=== PATIENT | female | born 1970 | race Caucasian/White ===

== ENCOUNTER → 2017-05-29 16:36 | Outpatient (CLI) | payer MEDICAID, SELFPAY ==
[2017-05-29 17:22] LABS: Absolute Lymphocyte Count 2.14 X10^3/ul (0.83-4.51); Absolute Neutrophil Count 3.3 X10^3/uL (2.0-7.7); Basophil# 0.11 X10^3/uL; Basophil% 1.8 % (0-1); Eosinophil# 0.11 X10^3/uL; Eosinophils% 1.8 % (0-5); Hematocrit 38.8 % (37-47); Hemoglobin 12.8 g/dl (12.0-15.0); Lymphocyte # 2.14 X10^3/ul (4.0); Mean Corpuscular Hgb 26.6 pg (27.0-32.0); Mean Corpuscular Volume 80.7 fL (81-99); Mean Platelet Vol. 10.4 fl (6.2-12.0); Monocyte% 8.2 % (0-10); Neutrophil # 3.25 X10^3/uL (2.7-7.7); Platelet Count 315 K/mm3 (150-450); RBC Distribution Width CV 16.3 % (11.6-14.6); RBC Distribution Width SD 47.3 fl (35.1-43.9); Red Blood Count 4.81 M/mm3 (4.2-5.4); White Blood Count 6.1 K/mm3 (4.4-11.0)
[2017-05-29 17:23] LABS: POSITIVE COUNT NO; POSITIVE DIFFERENTIAL NO; POSITIVE MORPHOLOGY NO
== END ==
PROVIDERS: Family Provider Internal Medicine; PCP Internal Medicine; Visit Provider Obstetrics & Gynecology
DX: N93.9 Abnormal uterine and vaginal bleeding, unspecified (principal)
CPT/HCPCS: 36415; 85025

== ENCOUNTER → 2017-05-31 14:02 | Outpatient (CLI) | payer MEDICAID, SELFPAY ==
--- NOTE | 2017-05-31 14:03 | US_ITS ---
STUDY: ULTRASOUND PELVIC CLINICAL: Female, 47 years old. Abnormal uterine bleeding. TECHNIQUE: Transabdominal and Transvaginal COMPARISON: None. FINDINGS: The uterus is anteverted and is in a midline position. The uterus measures 8.6 x 3.8 x 5.4 cm. Normal uterine cervix. The endometrium measures 19.9 mm in thickness, and is heterogeneous (striated). There is no demonstrated endometrial mass. There is no demonstrated myometrial mass. I.U.D. - The patient does not have an I.U.D. The right ovary is visualized. The right ovary measures 3.3 x 1.8 x 1.8 cm. There is no right ovarian cyst or ovarian mass. There is no visualized right adnexal mass or complex lesion. There is normal arterial and normal venous vascularity. The left ovary is visualized. The left ovary measures 2.3 x 1.3 x 1.6 cm. There is no left ovarian cyst or ovarian mass. There is no visualized left adnexal mass or complex lesion. There is normal arterial and normal venous vascularity. There is no fluid in the cul-de-sac. Urinary bladder has a normal appearance. IMPRESSION: 1. Thickened endometrium. Differential considerations include etiologies for endometrial hyperplasia versus neoplasia. 2. Normal sonographic appearance of both ovaries. Electronically Signed: Hilda Malone MD at 15:19 EST , Service support , STUDY: ULTRASOUND OF THE FEMALE PELVIS - COMPLETE CLINICAL: Female, 47 years old. Abnormal uterine bleeding. TECHNIQUE: Transabdominal and Transvaginal COMPARISON: None. FINDINGS: The uterus is anteverted and is in a midline position. The uterus measures 8.6 x 3.8 x 5.4 cm. Normal uterine cervix. The endometrium measures 19.9 mm in thickness, and is heterogeneous (striated). There is no demonstrated endometrial mass. There is no demonstrated myometrial mass. I.U.D. - The patient does not have an I.U.D. The right ovary is visualized. The right ovary measures 3.3 x 1.8 x 1.8 cm. There is no right ovarian cyst or ovarian mass. There is no visualized right adnexal mass or complex lesion. There is normal arterial and normal venous vascularity. The left ovary is visualized. The left ovary measures 2.3 x 1.3 x 1.6 cm. There is no left ovarian cyst or ovarian mass. There is no visualized left adnexal mass or complex lesion. There is normal arterial and normal venous vascularity. There is no fluid in the cul-de-sac. Urinary bladder has a normal appearance. US/Transvaginal Non- IMPRESSION: 1. Thickened endometrium. Differential considerations include etiologies for endometrial hyperplasia versus neoplasia. 2. Normal sonographic appearance of both ovaries. Electronically Signed: Hilda Malone MD at 15:20 EST , Service support ,
--- NOTE | 2017-05-31 14:03 | US_ITS ---
STUDY: ULTRASOUND PELVIC CLINICAL: Female, 47 years old. Abnormal uterine bleeding. TECHNIQUE: Transabdominal and Transvaginal COMPARISON: None. FINDINGS: The uterus is anteverted and is in a midline position. The uterus measures 8.6 x 3.8 x 5.4 cm. Normal uterine cervix. The endometrium measures 19.9 mm in thickness, and is heterogeneous (striated). There is no demonstrated endometrial mass. There is no demonstrated myometrial mass. I.U.D. - The patient does not have an I.U.D. The right ovary is visualized. The right ovary measures 3.3 x 1.8 x 1.8 cm. There is no right ovarian cyst or ovarian mass. There is no visualized right adnexal mass or complex lesion. There is normal arterial and normal venous vascularity. The left ovary is visualized. The left ovary measures 2.3 x 1.3 x 1.6 cm. There is no left ovarian cyst or ovarian mass. There is no visualized left adnexal mass or complex lesion. There is normal arterial and normal venous vascularity. There is no fluid in the cul-de-sac. Urinary bladder has a normal appearance. IMPRESSION: 1. Thickened endometrium. Differential considerations include etiologies for endometrial hyperplasia versus neoplasia. 2. Normal sonographic appearance of both ovaries. Electronically Signed: Hilda Malone MD at 15:19 EST , Service support , STUDY: ULTRASOUND OF THE FEMALE PELVIS - COMPLETE CLINICAL: Female, 47 years old. Abnormal uterine bleeding. TECHNIQUE: Transabdominal and Transvaginal COMPARISON: None. FINDINGS: The uterus is anteverted and is in a midline position. The uterus measures 8.6 x 3.8 x 5.4 cm. Normal uterine cervix. The endometrium measures 19.9 mm in thickness, and is heterogeneous (striated). There is no demonstrated endometrial mass. There is no demonstrated myometrial mass. I.U.D. - The patient does not have an I.U.D. The right ovary is visualized. The right ovary measures 3.3 x 1.8 x 1.8 cm. There is no right ovarian cyst or ovarian mass. There is no visualized right adnexal mass or complex lesion. There is normal arterial and normal venous vascularity. The left ovary is visualized. The left ovary measures 2.3 x 1.3 x 1.6 cm. There is no left ovarian cyst or ovarian mass. There is no visualized left adnexal mass or complex lesion. There is normal arterial and normal venous vascularity. There is no fluid in the cul-de-sac. Urinary bladder has a normal appearance. US/Pelvic (Non ) IMPRESSION: 1. Thickened endometrium. Differential considerations include etiologies for endometrial hyperplasia versus neoplasia. 2. Normal sonographic appearance of both ovaries. Electronically Signed: Hilda Malone MD at 15:20 EST , Service support ,
== END ==
PROVIDERS: Family Provider Internal Medicine; PCP Internal Medicine; Visit Provider Obstetrics & Gynecology
DX: N93.9 Abnormal uterine and vaginal bleeding, unspecified (principal)
CPT/HCPCS: 76830; 76856; 93976

== ENCOUNTER → 2017-06-04 16:20 | Outpatient (CLI) | payer MEDICAID, SELFPAY ==
--- NOTE | 2017-06-04 | EMB_PTH ---
PATIENT: JENNY ROWLAND LOC: [facility] U#:[id number] AGE/SX: 55/F ROOM: RE06/04/[address]: Dr. Suzan Kincaid MD : 1970 BED: DIS: SPEC #: [id number] RECD: 06/04/17 16:19 STATUS: KETURAH ÁNGELA #: [id number] NESS: 06/04/17 00:[address]: Suzan Kincaid DEPT: SURGICAL PATHOLOGY RECD BY: Deacon Hawk ENTERED: 06/05/17 06:49 SP TYPE: ENDOM BX/C NOÉ DR: Dr. 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 RENETTA:juan 06/06/17 MICROSCOPIC DESCRIPTION Slides are reviewed. GROSS DESCRIPTION Received is one container labeled with the patient's name and not further designated. The specimen consists of multiple irregular and elongated fragments of pink-mcqueen soft tissue that in aggregate measure 3 x 1.5 x 0.1 cm. The specimen is totally submitted in one cassette. / AM:juan 06/05/17 TC:5 CPT: 03206
== END ==
PROVIDERS: Family Provider Internal Medicine; PCP Internal Medicine; Visit Provider Obstetrics & Gynecology
DX: N93.9 Abnormal uterine and vaginal bleeding, unspecified (principal)
CPT/HCPCS: 88305

== ENCOUNTER 2017-06-10 10:06 | Day surgery (SDC) | payer MEDICAID, SELFPAY ==
--- NOTE | 2017-06-10 08:20 | PCM.HPOB.BLA ---
- Problem List (1) Abnormal uterine bleeding unrelated to menstrual cycle Status: Acute Comment: short course aygestin, ordered cbc and us, visit in office History and Physical Date of Admission: 06/10/17 OFFICE VISIT Date of Service: 06/04/17 MR#:[id number] Name: JENNY ROWLANDRep #:[id number] : 1970 Provider:Suzan Kincaid MD Age/Sex: 47/F [place] [place]Signed Intake Vital Signs 06/04/17 Height 5 ft 4 in 06/04/17 Weight: 239 lb 8 oz 06/04/17 Body Mass Index (BMI) 41.1 06/04/17 Blood Pressure 118/86 Intake Visit Reasons: irregular vaginal bleeding discuss ablation Nursing Admin Required: No Accompanied by: None Is patient in pain?: No Allergies cephalexin monohydrate [From Keflex] Allergy (Verified 06/06/17 12:04) Hives influenza virus vaccine, specific [influenza virus vacc,specific] Allergy (Verified 06/06/17 12:04) Hives levofloxacin [From Levaquin] Allergy (Verified 06/06/17 12:04) HIVES - JUST IV FORM caffeine Adverse Reaction (Verified 06/06/17 12:04) Shortness of breath tetanus toxoid, adsorbed Adverse Reaction (Verified 06/06/17 12:04) FEVER,NAUSEA,DIARRHEA,REDNESS AT INJECTION SITE Medications Clonazepam [Klonopin] 1 mg PO DAILY 06/14/15 [History Confirmed 06/06/17] Clonazepam [Klonopin] 2 mg PO QHS 09/19/16 [History Confirmed 06/06/17] HydrOXYzine KEANU [Vistaril] 50 mg PO DAILY 09/19/16 [History Confirmed 06/06/17] Hydroxyzine Pamoate 100 mg PO QHS 09/19/16 [History Confirmed 06/06/17] Hydrochlorothiazide [Hctz] 12.5 mg PO DAILY 01/03/17 [History Confirmed 06/06/17] Tizanidine HCl [Zanaflex] 4 mg PO QHS PRN 01/03/17 [History Confirmed 06/06/17] Zolpidem Tartrate [Ambien] 10 mg PO QHS PRN 01/03/17 [History Confirmed 06/06/17] albuterol sulfate HFA 90 mcg/actuation aerosol inhaler 2 puff INHALATION Q6H 03/20/17 [History Confirmed 06/06/17] naproxen 500 mg tablet 500 mg PO Q12H 03/20/17 [History Confirmed 06/06/17] gabapentin 600 mg tablet 600 mg PO TID tab 06/04/17 [History Confirmed 06/06/17] levothyroxine 25 mcg tablet 25 mcg PO DAILY 30 Days #30 06/04/17 [History Confirmed 06/06/17] lorazepam 0.5 mg tablet 0.5 mg PO Q4H PRN 5 Days #30 tab 06/04/17 [History Confirmed 06/06/17] oxycodone-acetaminophen 5 mg-325 mg tablet 1 tab PO ONCE PRN 06/04/17 [History Confirmed 06/06/17] Methocarbamol 750 mg PO PRN PRN 06/06/17 [History Confirmed 06/06/17] Venlafaxine HCl [Venlafaxine HCl ER] 225 mg PO DAILY 06/06/17 [History Confirmed 06/06/17] Is last menstrual period known: Yes Last Menstral Period: 05/16/17 PFSH Medical History Abnormal uterine bleeding unrelated to menstrual cycle (Acute) Abnormal CT scan, chest (Chronic) Arthritis (Chronic) Atypical chest pain (Chronic) Encounter for gynecological examination with abnormal finding (Chronic) Headache (Chronic) Pulmonary hypertension (Chronic) Abnormal uterine bleeding (Resolved) Personal history of other venous thrombosis and embolism (Resolved) Pulmonary embolism (Resolved) Screening for HPV (human papillomavirus) (Resolved) Screening for cervical cancer (Resolved) Surgical History H/O bilateral breast reduction surgery (Resolved) H/O carpal tunnel repair (Resolved) H/O dilation and curettage (Resolved) History of tonsillectomy (Resolved) Family History Mother Arthritis Father CAD (coronary artery disease) [place] Kidney disease Heart disease Brother Diabetes Heart disease Renal failure Social History Smoking Status: Never smoker second hand exposure: No alcohol intake: never substance use type: does not use caffeine: Yes (1/day) what type of physical activity do you participate in: none HPI irregular vaginal bleeding discuss ablation: Details: JENNY ROWLAND is a 47 year old who presents for abnormal uterine bleeding. she has been having bleeding on and off for a few months, with the latest episode lasting over two weeks and vey heavy, she has a history of pe and was given a short course of aygestin due to the severe bleeding. she denies any dizziness or headache. Female Reproductive History Last Menstral Period: 05/16/17 Cycle Length: 21-35 Pregancy History 1 Elective abortions Hx Para 1 Spontaneous abortions Hx # Term Pregnancies Ectopic pregnancies Hx # Pregnancies Multiple births # of living children Past Pregnancies Del. Date Name GA/Weeks Outcome Route Bth Weight Infant Gen Labor Lgth Anesthesia Del Locatn Provider FOB 06/14/99 ALBERTO 06/14/99 ALBERTO ROS Const Constitutional: Reports system reviewed and no additional complaints, except as docu GI GI: Denies abdominal pain, nausea, vomiting or cramping : Denies urinary frequency, vaginal dryness, vaginal discharge, urinary urgency, urinary incontinence, vaginal odor or pelvic pain Exam Const General: cooperative, healthy appearing, comfortable, no acute distress, well developed Nutritional Appearance: average body habitus Orientation: alert HENMT Head: normal to inspection, normocephalic Neck Neck: normal visual inspection, trachea midline Thyroid: thyroid normal Resp Effort & Inspection: normal respiratory effort GI Inspection: normal to inspection, non-distended Palpation: soft, no hepatosplenomegaly General: bladder normal to palpation External Female Exam: normal external appearance, normal appearance of the urethra Urethra: normal appearance of the urethra, normal palpation, no discharge Speculum Exam - Vagina: normal appearance of the vagina, normal vaginal discharge Speculum Exam - Cervix: normal appearance of the cervix, nontender Bimanual Exam- Vagina & Uterus: bladder normal to palpation, No cervical tenderness, normal bimanual exam, uterine size normal, uterine shape normal, uterine mobility normal, uterine consistency normal, normal cervical palpation, uterus non-tender Bimanual Exam- Adnexa, other: normal adnexae, adnexae mobile, no adnexal masses, pelvic support normal Pelvic Support: normal Skin General: no rashes or lesions noted Office Procedures Endometrial Biopsy Endometrial Biopsy Test: Yes declined Consent Signed: Yes Time out checklist: patient, procedure, site marked/identified, positioning of patient, supplies available, allergies confirmed, team agrees on procedure Time out time: 11:30 tenaculum used: No dilator used: No Details: Cervix prepped with betadine and pipelle inserted into uterus without complication. Specimen obtained and sent to lab for analysis. All instruments removed from vagina without complications. Excellent hemostasis noted. Assessment & Plan Problems 1. Abnormal uterine bleeding unrelated to menstrual cycle N93.9 short course aygestin, ordered cbc and us, visit in office Plan discussed options recommend endometrial biopsy today and if normal recommend endometrial ablation MONA and laparoscopic bilateral salpingectomy for sterilization. patient not a candidate for usp hormones and recommend surgery as soon as possible to prevent further bleeding episodes. update- normal EMB, proceed with d and c hysteroscopy. i have seen the patient and there are no other clinically relevant updates. Suzan Kincaid
--- NOTE | 2017-06-10 10:17 | EKG12_ITS ---
Test Reason : PRE-OP Blood Pressure : / mmHG Vent. Rate : 076 BPM Atrial Rate : 076 BPM P-R Int : 132 ms QRS Dur : 090 ms QT Int : 376 ms P-R-T Axes : 041 -13 022 degrees QTc Int : 423 ms Normal sinus rhythm Normal ECG When compared with ECG of 03-JAN-2017 15:54, Fusion complexes are no longer Present Confirmed by SULTANA MCCALL, LADAN ([id number]), associate entertainment editor HUONG GAMING ([id number]) on 06/12/2017 2:36:13 PM Referred By: Suzan Kincaid Confirmed By:LADAN WEINBERG MD
[2017-06-10 10:40] LABS: Internal QC Validated? YES +Cl - CLEAR BKGD; Pregnancy, Urine Negative Negative
[2017-06-10 10:42] VITALS: BP 120/76; PULSE 80; RESP 20; TEMP 37.4; O2SAT 100; BMI 41.0
[2017-06-10 11:05] LABS: Hematocrit 36.1 % (37-47); Hemoglobin 11.7 g/dl (12.0-15.0); Mean Corp Hgb Conc 32.4 g/gl (32-36); Mean Corpuscular Hgb 26.2 pg (27.0-32.0); Mean Corpuscular Volume 80.8 fL (81-99); Mean Platelet Vol. 8.9 fl (6.2-12.0); Platelet Count 308 K/mm3 (150-450); RBC Distribution Width CV 16.6 % (11.6-14.6); RBC Distribution Width SD 49.4 fl (35.1-43.9); Red Blood Count 4.47 M/mm3 (4.2-5.4); White Blood Count 7.5 K/mm3 (4.4-11.0)
[2017-06-10 11:06] LABS: Scan Indicated on CBC? Y/N NO
--- NOTE | 2017-06-10 11:45 | FALS_PTH ---
PATIENT: JENNY ROWLAND [place] [facility] [place][id number] AGE/SX: 47/F ROOM: RE06/10/[address]: Dr. Suzan Kincaid MD : 1970 BED: DIS: 06/10/2017 SPEC #: [id number] RECD: 06/11/17 08:39 STATUS: KETURAH ÁNGELA #: [id number] NESS: 06/10/17 11:[address]: Suzan Kincaid DEPT: SURGICAL PATHOLOGY RECD BY: Drew Tyler ENTERED: 06/11/17 12:13 SP TYPE: FALL TUBES OTHR DR: Dr. Nury Toscano MD Tissues: A - Fallopian tube B - Endometrium, NOS Procedures: Surgery Specimen Level II Surgery Specimen Level IV HEADER OPERATION: Hysteroscopy, D & C, Almita PRE-OP DIAGNOSIS: Abnormal uterine bleeding; sterilization request TISSUE SUBMITTED: A ? Bilateral fallopian tubes, B ? Endometrial curettings MICROSCOPIC DIAGNOSIS A. Bilateral fallopian tubes, salpingectomy: Bilateral fallopian tubes including fimbrial ends, no pathologic diagnosis. B. Endometrial curettings: Predominantly secretory endometrium with focal area of disordered proliferative endometrium. RENETTA:juan 06/12/17 COMMENT Please make reference to previous specimen ([id number]) endometrial biopsy with diagnosis of dyssynchronous endometrium consisting of disordered proliferative endometrium with focal secretory changes. MICROSCOPIC DESCRIPTION Slides are reviewed. GROSS DESCRIPTION A - Received is one container labeled with the patient's name and designated bilateral fallopian tubes. The specimen consists of two fallopian tubes including fimbrial ends. The fallopian tubes are not identified as right or left. One of the fallopian tubes measure 3.5 cm in length and 0.5 cm in diameter. The other fallopian tube measures 5 cm in length and 0.5 cm in diameter. Sections reveal unremarkable cut surfaces. Flight Test Engineer sections are submitted in two cassettes with each cassette containing one fallopian tube. B - Received in fixative is one container labeled with the patient's name and designated endometrial curettings. The specimen consists of multiple irregular fragments of mcqueen-pink soft tissue that in aggregate measure 5 x 3 x 0.3 cm. The entire specimen is submitted in two cassettes. / Michael 06/11/17 TC:5 CPT: 65114, 72196 x2
--- NOTE | 2017-06-10 11:54 | PCM.DC.TUB ---
Discharge Diet: No Restrictions - Increase fluid intake for the next 48 hours. Discharge Activity: Return to Normal Activity, May Drive - when you are no longer taking narcotic pain medications., May Shower, May Take a Tub Bath - in 7 days Additional Activity Instructions:: Ambulate often the next week after surgery. Nothing in the vagina for 5 days. Call your doctor if your incision/area has: Continuous Slow Oozing, Sudden Increased Bleeding, Increased Pain/ Swelling, Increased Redness, Foul Smelling Discharge Call your doctor if you observe: Fever of 101 or Higher Allergies/Adverse Reactions: Allergies cephalexin monohydrate [From Keflex] Allergy (Verified 06/06/17 12:04) Hives IV FORM ONLY PER PATIENT IS ABLE TO TAKE PO KEFLEX influenza virus vaccine, specific [influenza virus vacc,specific] Allergy (Verified 06/06/17 12:04) Hives levofloxacin [From Levaquin] Allergy (Verified 06/06/17 12:04) HIVES - JUST IV FORM caffeine Adverse Reaction (Verified 06/06/17 12:04) Shortness of breath tetanus toxoid, adsorbed Adverse Reaction (Verified 06/06/17 12:04) FEVER,NAUSEA,DIARRHEA,REDNESS AT INJECTION SITE Medications to take at Discharge Clonazepam [Klonopin] 1 mg PO DAILY 06/14/15 Clonazepam [Klonopin] 2 mg PO QHS 09/19/16 HydrOXYzine KEANU [Vistaril] 50 mg PO DAILY 09/19/16 Hydroxyzine Pamoate 100 mg PO QHS 09/19/16 Hydrochlorothiazide [Hctz] 12.5 mg PO DAILY 01/03/17 Tizanidine HCl [Zanaflex] 4 mg PO QHS PRN 01/03/17 Zolpidem Tartrate [Ambien] 10 mg PO QHS PRN 01/03/17 albuterol sulfate HFA 90 mcg/actuation aerosol inhaler 2 puff INHALATION Q6H 03/20/17 naproxen 500 mg tablet 500 mg PO Q12H 03/20/17 gabapentin 600 mg tablet 600 mg PO TID tab 06/04/17 levothyroxine 25 mcg tablet 25 mcg PO DAILY 30 Days #30 06/04/17 lorazepam 0.5 mg tablet 0.5 mg PO Q4H PRN 5 Days #30 tab 06/04/17 oxycodone-acetaminophen 5 mg-325 mg tablet 1 tab PO ONCE PRN 06/04/17 Methocarbamol 750 mg PO PRN PRN 06/06/17 Venlafaxine HCl [Venlafaxine HCl ER] 225 mg PO DAILY 06/06/17 Ibuprofen [Motrin] 600 mg PO Q6H PRN PRN #30 tab 06/10/17 Naproxen [Naprosyn] 250 - 500 mg PO Q8H PRN PRN #30 tab 06/10/17 Oxycodone HCl/Acetaminophen [Percocet 5-325] 1 - 2 tablet PO Q4H PRN PRN 7 Days #15 tablet 06/10/17 The following prescriptions were given: Oxycodone HCl/Acetaminophen [Percocet 5-325] 1 - 2 tablet PO Q4H PRN PRN 7 Days #15 tablet PRN Reason: Pain Ibuprofen [Motrin] 600 mg PO Q6H PRN PRN #30 tab PRN Reason: Pain Naproxen [Naprosyn] 250 - 500 mg PO Q8H PRN PRN #30 tab PRN Reason: MILD PAIN Primary Care Physician: Nury Toscano MD [Primary Care Provider] - Please Follow Up With: Suzan Kincaid MD - [phone]
[2017-06-10] MEDS: Bupivacaine 0.25% 30 ML Vial (12:02)
[2017-06-10] MEDS: Silver Nitrate (BKC) 1 EACH (12:28)
[2017-06-10 12:45] VITALS: BP 115/65; BP 120/76; PULSE 97; RESP 16; TEMP 36.3; O2SAT 97
[2017-06-10 13:00] VITALS: BP 120/76; BP 127/89; PULSE 83; RESP 16; O2SAT 100
[2017-06-10 13:15] VITALS: BP 113/92; BP 120/76; PULSE 78; RESP 16; TEMP 36.1; O2SAT 100
[2017-06-10] MEDS: Ketorolac 30 MG/ML Syringe IV (13:40)
[2017-06-10 14:05] VITALS: BP 120/76
--- NOTE | 2017-06-12 08:17 | OP.PCM_ITS ---
Problem List (1) Abnormal uterine bleeding unrelated to menstrual cycle Status: Acute Comment: short course aygestin, ordered cbc and us, visit in office (2) Sterilization Status: Acute Report of Operation Date of Procedure: 06/10/17 Pre-Operative Diagnosis: aub sterilization Post-Operative Diagnosis: same Surgery/Procedure Performed:: D&C hysteroscopy Almita ablation and laparoscopic bilateral salpingectomy Description of Surgical Findings:: Thickened endometrial lining client support manager: Kathrin Cooper Type of Anesthesia:: General Specimen's removed: Lateral fallopian tubes and endometrial curettings Drains: None Estimated Blood Loss (mL): 50 Fluids Replaced: crystalloid Description of Procedure: Patient was taken in the operating room and was placed under general anesthesia was prepped and draped in normal sterile fashion in the dorsal lithotomy position. Bladder was drained of clear urine and SCDs were on preoperatively. Uterus was sounded and a uterine manipulator was placed after dilating. Attention was then paid to the abdominal portion of the procedure and the umbilicus was elevated with towel clamps and injected with Marcaine and after a 5 mm incision was made and the Veress needle was entered into the abdomen confirmed to be intra-abdominal with a low opening pressure of less than 5 mmHg. Abdomen was insufflated with CO2 gas and a 5 mm optical trocar was placed under direct visualization. A left lower quadrant 5 mm port and a 5 mm port suprapubically replaced under direct visualization. Uterus was well visualized and bilateral fallopian tubes identified and bilateral tubes were elevated and transecting across the mesosalpinx and the attachment to the uterine corneal S bilaterally the tubes were removed without complication. Excellent hemostasis was noted. Fallopian tubes were removed through the lower port sites without complication. Liver and upper abdomen were visualized notably within normal limits and no other gross after maladies were seen in the abdomen. All instruments removed from the abdomen after gas was desufflated. Port sites were closed with 3-0 Monocryl Steri's and op sites were applied. A weighted speculum was placed in the vagina and the anterior lip of the cervix was grasped with a single-tooth tenaculum. A paracervical block was placed with 1% lidocaine. Cervix was progressively dilated to allow passage of a 5 mm hysteroscope. The lining was fully visualized and noted to have thickened appearance. Uterine sounded to 9 cm. Curettage was performed and significant amount of tissue was removed, sent to pathology. The Almita device was opened and the cavity length was found to be 5 cm. Device was inserted into the uterus and balloon inflated and device deployed. Integrity of the cavity was confirmed and a 2 minute treatment cycle was completed without complication. All instruments were removed from the vagina and excellent hemostasis was noted. Patient was awoken and taken to recovery in stable condition. Grafts/Implants Used: none - Complications none
== END 2017-06-10 14:12 | disposition home or self-care (01) ==
LOC: SDC 10:07 → AC 10:09
PROVIDERS: Anesthesiology; Family Provider Internal Medicine; PCP Internal Medicine; Visit Provider Obstetrics & Gynecology
PROC: 0U5B8ZZ Destruction of Endometrium, Via Natural or Artificial Opening Endoscopic (ICD-10-PCS; CPT 58558; principal; 2017-06-10 11:30)
PROC: (CPT 58661; 2017-06-10 11:30)
DX: N85.8 Other specified noninflammatory disorders of uterus (principal); N93.9 Abnormal uterine and vaginal bleeding, unspecified; Z30.2 Encounter for sterilization; R93.8 Abnormal findings on diagnostic imaging of other specified body structures; M19.90 Unspecified osteoarthritis, unspecified site; I27.20 Pulmonary hypertension, unspecified; I08.1 Rheumatic disorders of both mitral and tricuspid valves; F41.9 Anxiety disorder, unspecified; Z86.711 Personal history of pulmonary embolism; Z79.899 Other long term (current) drug therapy
CPT/HCPCS: 58563; 58661; 81025; 85027; 86850; 86900; 88302; 88305; 93005; J7120; J2405

== ENCOUNTER 2018-04-05 10:42 | Emergency (ER) | payer MEDICAID, SELFPAY ==
[2018-04-05] VITALS (7 sets, daily range): BP systolic 114–147; BP diastolic 51–86; PULSE 74–88; RESP 14–18; TEMP 36.4; O2SAT 89–97; BMI 43.4
--- NOTE | 2018-04-05 11:01 | CT_ITS ---
STUDY: CTA CHEST REASON FOR EXAM: Female, 48 years old. Shortness of breath. Recent pneumonia. Exclude PE. RADIATION DOSAGE (If Supplied By Facility): CTDIvol = ( 18.91 ) mGy, DLP = ( 946.93 ) mGycm TECHNIQUE: The examination was performed with the intravenous administration of 100 ml of Isovue 370 contrast material. Post-processing of the angiographic images was performed, with multiplanar reformation and 3D reconstruction. Individualized dose optimization techniques were used for this CT. COMPARISON: 09/19/2016 FINDINGS: Normal enhancement of the main pulmonary artery and right and left pulmonary arteries. Normal enhancement of the bilateral peripheral pulmonary arteries. There is no demonstrated pulmonary embolism. Normal thoracic aorta and visualized great vessels. There is no demonstrated aortic dissection. Normal heart and pericardium. Normal mediastinum. Normal hilar regions. Normal visualized trachea and bronchi. The lungs are well expanded. Normal pulmonary parenchyma. Normal pleura. Normal chest wall structures. Normal osseous structures. Normal visualized upper abdomen. CT/CTA Chest W/WO Contrast IMPRESSION: Normal CTA chest examination, without a demonstrated pulmonary embolism or arterial dissection. Electronically Signed: Josemanuel Nicole DO at 12:11 EST Tel , Service support ,
[2018-04-05] MEDS: Ipratropium/Albuterol Sulfate 3 ML AMPUL.NEB INHALATION (11:16)
[2018-04-05 11:28] LABS: Absolute Lymphocyte Count 2.07 X10^3/ul (0.83-4.51); Absolute Neutrophil Count 2.4 X10^3/uL (2.0-7.7); Basophil# 0.05 X10^3/uL; Basophil% 0.9 % (0-1); Eosinophil# 0.13 X10^3/uL; Eosinophils% 2.4 % (0-5); Hemoglobin 11.5 g/dl (12.0-15.0); Lymphocyte # 2.07 X10^3/ul (4.0); Lymphocyte % 38.9 % (19-41); Mean Corp Hgb Conc 31.9 g/gl (32-36); Mean Corpuscular Hgb 26.3 pg (27.0-32.0); Mean Corpuscular Volume 82.2 fL (81-99); Mean Platelet Vol. 9.2 fl (6.2-12.0); Monocyte# 0.65 X10^3/uL; Monocyte% 12.2 % (0-10); Neutrophil # 2.42 X10^3/uL (2.7-7.7); Neutrophil % 45.6 % (47-70); POSITIVE COUNT NO; POSITIVE DIFFERENTIAL NO; POSITIVE MORPHOLOGY NO; Platelet Count 277 K/mm3 (150-450); RBC Distribution Width CV 16.2 % (11.6-14.6); RBC Distribution Width SD 48.8 fl (35.1-43.9); Red Blood Count 4.38 M/mm3 (4.2-5.4); White Blood Count 5.3 K/mm3 (4.4-11.0)
[2018-04-05 11:43] LABS: Anion Gap 10 (5-15); BUN 19 mg/dL (7-18); BUN/Creat Ratio 20.8 RATIO (10-20); Calcium,Total 8.7 mg/dL (8.5-10.1); Chloride 107 mmol/L (98-107); Creatinine, Serum 0.92 mg/dL (0.55-1.02); EST Glomerular Filtration Rate 69 mL/min (>60); Est Glom Filt Rate - Afr Amer 84 mL/min (>60); Estimated Creatinine Clearance 63.17 ml/min; Glucose 84 mg/dL (74-106); Sodium Level 140 mmol/L (136-145)
--- NOTE | 2018-04-05 12:30 | ED.VISSUMM ---
- ER Visit Summary Date of Service: 04/05/18 Chief Complaint: [Shortness of breath] History of Present Illness: The patient is a 48 F [presents the emergency department complaint of cough and shortness of breath that she has had for almost a month. Patient states that she was diagnosed with pneumonia in February and was treated with antibiotics.] Patient states that initially she felt a little bit better but then started having increasing cough that is essentially nonproductive. Patient had some heaviness in her chest. She is been feeling fatigued. She has had some swelling in her legs. Patient does have a history of pulmonary emboli in the past and had been on anticoagulation for 6 months and then was taken off. Patient denies recent travel or surgery. She does have a history of hypertension, hypothyroidism, anxiety, and migraines. Physical Examination: [HEENT-PERRLA, EOMI. Cranial nerves II through XII grossly intact. TMs clear. Mucous membranes moist. No adenopathy. Cardiovascular-regular rate and rhythm without murmur or ectopy Lungs-good aeration bilaterally. Occasional wheezes noted. No accessory muscle use or retractions. Abdomen-normoactive bowel sounds, soft, nontender, no rebound or rigidity, no peritoneal signs. Extremities-intact ?4, normal range of motion, normal pulses, atraumatic. Trace edema bilateral lower extremities.] Test Results: [EKG obtained arrival shows sinus rhythm with a ventricular rate of 77 bpm with a right bundle branch block that is incomplete. CBC with differential is normal. Chemistries were normal. Troponin was less than 0.015. CTA of the chest was normal.] Emergency Department Course and Treatment: [Patient was given a DuoNeb aerosol which did symptomatically feel improved.] Treatment Plan: [Patient will be started on prednisone and doxycycline. 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 At this point I do not feel her symptoms are cardiac and she states that she did have a stress test a year ago that was unremarkable.] Disposition: [Discharged home in stable condition] Impression: [Dyspnea Asthmatic bronchitis] This note was generated with [employer] software. It may contain incorrect words, spelling, and punctuation that were not noted in review of the chart prior to signing ED Disposition - Plan for ED Patient: Chief Complaint: Shortness of Breath Referrals: Nury Toscano MD [Primary Care Provider] -
--- NOTE | 2018-04-05 12:33 | ED.DCSUM_ITS ---
- ER Visit Summary Date of Service: 04/05/18 Chief Complaint: [Shortness of breath] History of Present Illness: The patient is a 48 F [presents the emergency department complaint of cough and shortness of breath that she has had for almost a month. Patient states that she was diagnosed with pneumonia in [place] and was treated with antibiotics.] Patient states that initially she felt a little bit better but then started having increasing cough that is essentially nonproductive. Patient had some heaviness in her chest. She is been feeling fatigued. She has had some swelling in her legs. Patient does have a history of pulmonary emboli in the past and had been on anticoagulation for 6 months and then was taken off. Patient denies recent travel or surgery. She does have a history of hypertension, hypothyroidism, anxiety, and migraines. Physical Examination: [HEENT-PERRLA, EOMI. Cranial nerves II through XII grossly intact. TMs clear. Mucous membranes moist. No adenopathy. Cardiovascular-regular rate and rhythm without murmur or ectopy Lungs-good aeration bilaterally. Occasional wheezes noted. No accessory muscle use or retractions. Abdomen-normoactive bowel sounds, soft, nontender, no rebound or rigidity, no peritoneal signs. Extremities-intact ?4, normal range of motion, normal pulses, atraumatic. Trace edema bilateral lower extremities.] Test Results: [EKG obtained arrival shows sinus rhythm with a ventricular rate of 77 bpm with a right bundle branch block that is incomplete. CBC with differential is normal. Chemistries were normal. Troponin was less than 0.015. CTA of the chest was normal.] Emergency Department Course and Treatment: [Patient was given a DuoNeb aerosol which did symptomatically feel improved.] Treatment Plan: [Patient will be started on prednisone and doxycycline. 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 At this point I do not feel her symptoms are cardiac and she states that she did h ave a stress test a year ago that was unremarkable.] Disposition: [Discharged home in stable condition] Impression: [Dyspnea Asthmatic bronchitis] This note was generated with [employer] dictation software. It may contain incorrect words, spelling, and punctuation that were not noted in review of the chart prior to signing ED Disposition - Plan for ED Patient: Chief Complaint: Shortness of Breath Referrals: Nury Toscano MD [Primary Care Provider] -
--- NOTE | 2018-04-05 12:33 | ED.DEP ---
ED Disposition - Plan for ED Patient: Chief Complaint: Shortness of Breath Instructions: ED Bronchitis Asthmatic, ED Dyspnea Shortness of Breath Prescriptions: Doxycycline 100 mg PO BID #20 cap Prednisone [Deltasone] 20 mg PO BID #10 tab Referrals: Nury Toscano MD [Primary Care Provider] - 3-5 Days
[2018-04-05 12:54] LABS: BNP,B-Type NATRIURETIC PEPTIDE 20.4 pg/mL (0-100)
== END 2018-04-05 12:51 | disposition home or self-care (01) ==
PROVIDERS: Emergency Provider Emergency Medicine; Family Provider Internal Medicine; PCP Internal Medicine
DX: J45.909 Unspecified asthma, uncomplicated (principal); I10 Essential (primary) hypertension; E03.9 Hypothyroidism, unspecified; F41.9 Anxiety disorder, unspecified; Z86.711 Personal history of pulmonary embolism; Z87.01 Personal history of pneumonia (recurrent); Z79.899 Other long term (current) drug therapy
CPT/HCPCS: 71275; 80048; 83880; 84484; 85025; 93005; 94640; 99284; Q9967; A4216

== ENCOUNTER 2018-10-08 15:13 | Emergency (ER) | payer MEDICAID, SELFPAY ==
[2018-04-05 10:44] VITALS: BMI 43.4
[2018-10-08 15:14] VITALS: BP 118/83; PULSE 108; RESP 14; TEMP 36.8; O2SAT 96; BMI 44.6
--- NOTE | 2018-10-08 15:35 | ED.VISSUMM ---
- ER Visit Summary Date of Service: 10/08/18 Chief Complaint: Back pain History of Present Illness: The patient is a 48 F who has a history of spinal stenosis. Approximately 2 years ago she had surgery for this. States initially went well but then she bent over an industrial sink and her pain returned. Her previous spinal stenosis Dr. marie 1 year ago. She has an appointment with pain management in a couple weeks through [place]. Today she got in the shower was getting dressed and when she bent over she had immediate pain in her low back that radiates down the right leg. She notes some decreased sensation in the calf the dorsum of her foot. No muscle weakness. She states over the past month she has problems starting her stream. There is been no incontinence. No fevers she states she has a couple hydrocodone left which she tried today which did not help her. She also takes methocarbam. Physical Examination: Afebrile vital signs are stable Gen: Well-nourished well-developed Head: Normocephalic atraumatic Eyes: Perrl EOMI ENT: TMs clear no rhinorrhea moist mucous membranes Neck: Supple no lymphadenopathy no JVD nontender CVS: Regular rate rhythm no murmurs normal S1-S2 Respiratory: No distress clear to auscultation bilaterally chest nontender Abdomen: Soft nontender nondistended normal bowel sounds no masses Back: Tender palpation of the right paraspinal musculature. Extremity: Nontender no edema Skin: Normal color no rash Neuro: alert orientated ?3 CN II-XII intact normal strength reported decreased sensation calf dorsum of right foot Psych: Normal affect normal mood Emergency Department Course and Treatment: Patient received an intramuscular dose of morphine and Toradol. I will write for oxycodone, Valium, and naproxen. Patient should follow-up with her doctors. Impression: 1. Acute on chronic back pain This note was generated with [email or web address] dictation software. It may contain incorrect words, spelling, and punctuation that were not noted in review of the chart prior to signing ED Disposition - Plan for ED Patient: Disposition: Home or Assisted Living Instructions: BACK PAIN (Acute or Chronic) Prescriptions: Naproxen [Naprosyn] 500 mg PO BID #14 tab Prescription Printed Oxycodone [Oxyir] 5 mg PO Q6H PRN PRN 3 Days #12 tab PRN Reason: Pain Prescription Printed Diazepam [Valium] 5 mg PO Q8 PRN 3 Days #9 tab PRN Reason: Muscle Spasm Prescription Printed Referrals: Nury Toscano MD [Primary Care Provider] - 3-5 Days if not improving Additional Instructions: Do not take the hydrocodone and the oxycodone together. Stop the methocarbam if you are taking Valium.
[2018-10-08] MEDS: morphine 10 MG/ML Syringe IM (15:39)
[2018-10-08] MEDS: Ketorolac 60 MG/2 ML Vial IM (15:42)
[2018-10-08 16:12] VITALS: BP 119/91; PULSE 88; RESP 16; O2SAT 93
== END 2018-10-08 16:22 | disposition home or self-care (01) ==
LOC: ED 16:16
PROVIDERS: Emergency Provider Emergency Medicine; Family Provider Internal Medicine; PCP Internal Medicine
DX: M54.5 Low back pain (principal); G89.29 Other chronic pain; M48.00 Spinal stenosis, site unspecified; E66.9 Obesity, unspecified; Z68.41 Body mass index [BMI] 40.0-44.9, adult
CPT/HCPCS: 96372; 99282

== ENCOUNTER → 2018-12-08 15:56 | Outpatient (CLI) | payer MEDICAID, SELFPAY ==
[2018-12-08 17:06] LABS: Amphetamine Urine VISTA NEGATIVE (<1000 ng/mL); Barbiturate Urine VISTA NEGATIVE (< 200 ng/mL); Benzodiazepine Urine VISTA POSITIVE (< 200 ng/mL); Cocaine Urine VISTA NEGATIVE (< 300 ng/mL); Ecstacy Urine VISTA NEGATIVE (< 500 ng/mL); Methadone Urine VISTA NEGATIVE (< 300 ng/mL); PCP Urine VISTA NEGATIVE (< 25 ng/mL); THC Urine VISTA NEGATIVE (< 50 ng/mL); Vista UDS pH Range 6
== END ==
PROVIDERS: Family Provider Internal Medicine; PCP Internal Medicine; Referring Provider Anesthesiology Pain Medicine; Visit Provider Anesthesiology Pain Medicine
DX: F11.20 Opioid dependence, uncomplicated (principal)
CPT/HCPCS: 80307

== ENCOUNTER → 2019-01-07 15:52 | Outpatient (CLI) | payer MEDICAID, SELFPAY ==
--- NOTE | 2019-01-07 16:00 | RAD_ITS ---
STUDY: X-RAY - LUMBAR SPINE REASON FOR EXAM: Female, 48 years old. Low back pain radiating to right leg TECHNIQUE: 3 view(s) of the lumbar spine were obtained. COMPARISON: None FINDINGS: There is straightening of the normal lumbar lordosis. There is no substantial scoliosis. There is a normal alignment of the vertebrae. There is endplate spondylosis of the lumbar vertebrae most severely affecting L4 and L5. There is narrowing of the L3-4 and L4-5 disc spaces. There is status post laminectomy changes of L4 and L5. The soft tissue structures are unremarkable. RAD/Lumbar Spine 2 or 3 Views IMPRESSION: Degenerative and postsurgical changes as detailed above. Electronically Signed: Kyrie Ghosh MD at 19:43 EDT , Service support ,
== END ==
PROVIDERS: Family Provider Internal Medicine; PCP Internal Medicine; Referring Provider Anesthesiology Pain Medicine; Visit Provider Anesthesiology Pain Medicine
DX: M47.896 Other spondylosis, lumbar region (principal); M48.061 Spinal stenosis, lumbar region without neurogenic claudication; Z98.1 Arthrodesis status
CPT/HCPCS: 72100; 97113; 97161; 97164

== ENCOUNTER → 2019-01-19 10:24 | Outpatient (CLI) | payer MEDICAID, SELFPAY ==
--- NOTE | 2019-01-19 10:35 | RAD_ITS ---
STUDY: X-RAY - CERVICAL SPINE REASON FOR EXAM: Female, 48 years old. PAIN TECHNIQUE: 3 view(s) of the cervical spine were obtained. COMPARISON: None FINDINGS: There are mild degenerative changes of the anterior atlantoaxial articulation. Normal odontoid process. There is reversal of the normal cervical lordosis. Posterior alignment is maintained. This may be positional. Normal vertebral bodies and endplates. Subtle disc height loss is noted at C4-C5 with small anterior marginal osteophyte. Normal visualized intervertebral neuroforamina. The soft tissue structures are unremarkable. RAD/Cerv Spine 2 or 3 Views IMPRESSION: Mild degenerative spondylosis as described. Electronically Signed: Cari Martini MD at 11:03 EDT , Service support ,
== END ==
PROVIDERS: Family Provider Internal Medicine; PCP Internal Medicine; Referring Provider Anesthesiology Pain Medicine; Visit Provider Anesthesiology Pain Medicine
DX: M54.2 Cervicalgia (principal)
CPT/HCPCS: 72040

== ENCOUNTER 2019-04-27 11:30 | Outpatient (RCR) | payer MEDICAID, SELFPAY ==
--- NOTE | 2019-01-07 07:21 | HP.PTEVAL_ITS ---
Patient's Visit Information JENNY ROWLAND is a 48 year old F referred to Physical Therapy by Asif Cooley MD with a diagnosis of Low back pain and R leg pain. Date of Evaluation: 01/01/19 Physical Therapist: Shmuel Mills DPT - Visit Plan Frequency: 2x /Week Duration: 4-6 Weeks Plan: 1) aquatic therapy: focus on TA activation, postural correction, body mechanics, gentle lumbar ROM. HS/hip flexors stretching- light. - Subjective Findings: Pt is here today for her initial evaluation with diagnosis of back and leg pain. Pt. has a history of lumbar stenosis surgery L4/L5 in 2016. Pt. was doing well for about 7 months until she bent over in a large industrial sink and felt a sharp pain in her back and leg. Pt. has followed back up with her surgeon who told her there was nothing surgically that could be done. Pt. has increased pain to 6-8/10 with standing, bending, leaning forward. Pt. is better in sitting 2/10, but only for shorter periods of time. Pt. does have N/T down lateral R LE and in 2nd-4th toes. Pt. is better in mornings and progressively gets worse throughout the day. She has increased pain with sleeping, resulting in difficulty falling asleep and does wake her up at times. Pt. has fallen twice over the past few months resulting in boyd injury. 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 Pt. is hopeful to reduce symptoms in order to have incerased tolerance to all work related activities. - Pain lumbar spine Pain Intensity (Out of 10): 7 Pain Intensity Range: 4, 8 RLE Pain Intensity (Out of 10): 6 Pain Intensity Range: 4, 8 - Objective POSTURE: Pt. is over wt. She has general slouched posture. No lateral shift noted. PALPATION: Pt. has tendernes along lumbar erector spinea. Pt. has tenderness in B gluteal region as well. NEURO: normal throughout. ROM: Lumbar spine: flexion min loss increase NW, ext mod loss increase NW, SB min loss increase NW bilat, rotation min loss increase NW bilat. Pt. has tight HS and tight hip flexors bilaterally. MMT: RLE- ankle 5/5 throughout; knee- ext 4+/5, flexion 4+/5; hip- flexion 4/5, abd 4-/5, ext 4/5. LLE- ankle 5/5 throughout; knee- ext 5/5, flexion 5-/5; hip- flexion 4+/5, abd 4+/5, ext 4/5. Core strength- poor. Pt. has difficulty with TA contraction and decreased pelvic awareness noted. GAIT: Pt. ambulates without AD, but does have decreased step length with LLE. Pt. had increased trunk sway with gait and forward flexed posture. - Goals Goal 1:: Pt. to be I with HEP. Goal Time Frame: 4-6 Weeks Goal 2:: Pt. have increased BLE and core strength by 1/2 grade throughout effected musculature. Goal Time Frame: 4-6 Weeks Goal 3:: Pt. to ambulate with 0-3/10 pain in lumbar spine and RLE. Goal Time Frame: 4-6 Weeks Goal 4:: Pt. to complete all work related activities iwth 0-3/10 pain in lumbar spine and RLE. Goal Time Frame: 4-6 Weeks Goal 5:: Pt. to sleep throughout the night with 0-2/10 pain allowing for increased quality of life. Goal Time Frame: 4-6 Weeks Goal 6:: Pt. to have increased lumbar ROM by 25% in all directions with 0-2/10 pain. Goal Time Frame: 4-6 Weeks - Rehabilitation Potential Physical Therapy Diagnosis: Pt. has signs and symptoms consistent with radiating low back pain. Pt. complains of N/T and weakness in her RLE resulting in 2 falls, but does not have decreased DTR in her RLE and has sensation to light and sharp touch. Pt. does have sligth reduction in RLE throughout, but mostly proximal muscle groups. Pt. would benefit from PT to increase lumbar ROM, increase core and BLE strength and decrease symptoms. Rehabilitation Potential: Fair - Anticipated Interventions Patient/Client Instruction: Educate patient on: Condition, Plan of Care, Risk Factors, Benefits of Fitness Program For the Purpose of:: To foster healthy habits, To improve decision making, To facilitate caregiver knowledge, To improve self management, To prevent re- injury, To improve ability to perform tasks related to life management, To improve tolerance to ADL's Therapeutic Exercise to Include: Strength training, Power training, Body mechanics, Postural training, Flexibilty training, Gait and locomotor training, In an aquatic setting, Active ROM, Dynamic Lumbar Stabilization, [place] Exercises For the Purpose of:: To decrease pain, To increase ROM, To improve nutrient delivery to tissue, To increase oxygenation perfusion, To improve muscle performance and motor function, To improve ability to perform ADL's, To increase tolerance to activity/condition/position, To improve gait and locomotor functions, To improve health of tissue, To decrease soft tissue restriction, To increase flexibility/ROM, To improve endurance Thank you for the opportunity to evaluate your patient. For Medicare and Medicare HMO plans, please review the plan of care and approve it. It will need to be FAXED BACK to us at [phone] for Medicare purposes. For Medicare only, by signing this I certify the plan of care. Please let me know if there are questions or concerns regarding this plan of care. Physician Signature: Date:
--- NOTE | 2019-04-27 14:19 | HP.PTREVAL_ITS ---
Asif Cooley MD, It has been my pleasure to treat JENNY ROWLAND over the last 5 visits for Low back pain and R leg pain. Please see the progress note below for an update on the physical therapy plan of care! Subjective: Pt. reports I am having more and more pain. The left side is not bother me. My neck feels stiff and my right shoulder is now bothering. It feels like I have to stretch a lot. I am also now having weakness in my left leg. It has given out on me. She reports she have been working a ton all three shifts. This is the reason she has not been here since. Pt. is to follow up with physician later this week. Pt. has also been reporting increased numbness at anterior boyd to 2nd toe on RLE. Objective/Function: ROM: Lumbar spine: flexion nil loss NE, ext mod loss increase/worse, SB nil loss bilat, rotation nil loss kely. Cervical spine- min loss throughout. Shoulders with in normal limits. MMT: RLE- increased weakness 4/5 at knee ext and flexion. 5/5 throughout rest of RLE. LLE- 5/5 throughout LLE. Core strength- poor. Pt. does better with flexion based movements, worse with extension movements. Pt. did well with [facility] does better, but not total relieving. Pt. has not lucas in PT for the last 2 months or so due to work time issues. Pt. does have some pain with slump test on R side. Pt. had no radiating symptoms with ROM testing. Plan Plan: Pt. to follow up with physician this week. PT. reports she is steadily getting worse over the past few months. Pt. id have some radiating symptoms, and is conserned her recent weakness in her RLE, which she feels like it is going to give out on her. Pt. would probably benefit from MRI at this point in time, due to symptoms worsening and with her RLE weakness. Goals Goal 1:: Pt. to be I with HEP. Goal Time Frame: 4-6 Weeks Goal Progress: Progressing Goal 2:: Pt. have increased BLE and core strength by 1/2 grade throughout effected musculature. Goal Time Frame: 4-6 Weeks Goal Progress: Not Progressing Goal 3:: Pt. to ambulate with 0-3/10 pain in lumbar spine and RLE. Goal Time Frame: 4-6 Weeks Goal Progress: Not Progressing Goal 4:: Pt. to complete all work related activities iwth 0-3/10 pain in lumbar spine and RLE. Goal Time Frame: 4-6 Weeks Goal Progress: Not Progressing Goal 5:: Pt. to sleep throughout the night with 0-2/10 pain allowing for increased quality of life. Goal Time Frame: 4-6 Weeks Goal Progress: Not Progressing Goal 6:: Pt. to have increased lumbar ROM by 25% in all directions with 0-2/10 pain. Goal Time Frame: 4-6 Weeks Goal Progress: Progressing Anticipated Interventions Patient/Client Instruction: Educate patient on: Condition, Plan of Care, Risk Factors, Benefits of Fitness Program For the Purpose of:: To foster healthy habits, To improve decision making, To facilitate caregiver knowledge, To improve self management, To prevent re- injury, To improve ability to perform tasks related to life management, To improve tolerance to ADL's Therapeutic Exercise to Include: Strength training, Power training, Body mechanics, Postural training, Flexibilty training, Gait and locomotor training, In an aquatic setting, Active ROM, Dynamic Lumbar Stabilization, [place] Exercises For the Purpose of:: To decrease pain, To increase ROM, To improve nutrient delivery to tissue, To increase oxygenation perfusion, To improve muscle performance and motor function, To improve ability to perform ADL's, To increase tolerance to activity/condition/position, To improve gait and locomotor function s, To improve health of tissue, To decrease soft tissue restriction, To increase flexibility/ROM, To improve endurance Please do not hesitate to contact me at [phone] by phone or Fax: if you have questions or concerns regarding this new plan of care! Sincerely, Shmuel Mills DPT
== END 2019-04-27 19:00 | disposition home or self-care (01) ==
LOC: PT 11:30
PROVIDERS: Family Provider Internal Medicine; PCP Internal Medicine; Referring Provider Anesthesiology Pain Medicine; Visit Provider Anesthesiology Pain Medicine
DX: M54.9 Dorsalgia, unspecified (principal); M79.606 Pain in leg, unspecified
CPT/HCPCS: 97113; 97161

== ENCOUNTER → 2019-05-12 06:31 | Outpatient (CLI) | payer MEDICAID, SELFPAY ==
--- NOTE | 2019-05-12 06:39 | MRI_ITS ---
STUDY: MRI LUMBAR SPINE WITHOUT CONTRAST REASON FOR EXAM: Female, 49 years old. back pain, rt sided weakness, hx prior surgery L4/L5 2016- reinjured after surgery TECHNIQUE: Standardized fat and water weighted pulse sequences were obtained in the sagittal and axial planes. COMPARISON: Lumbar spine x-ray dated January 07, 2019 FINDINGS: No demonstrated compression deformity or fracture line or acute marrow edema. There is straightening of the normal lumbar lordosis. There is no substantial scoliosis. Normal conus medullaris that terminates at the T12-L1 level. L1-2: Normal. L2-3: Normal endplates. Interspinous chronic postoperative scarring noted. Disc desiccation is present. Normal disc height and morphology. Normal bilateral facet joints. Normal central canal and bilateral lateral recesses. Normal bilateral intervertebral neural foramina. L3-4: Normal endplates. Interspinous chronic postoperative scarring noted. Disc desiccation is present. Normal disc height and morphology. Normal bilateral facet joints. Normal central canal and bilateral lateral recesses. Normal bilateral intervertebral neural foramina. L4-5: Posterior decompressive defect noted. Chronic fatty atrophy of the paraspinal musculature as well as some minor scarring. Normal endplates. Moderate disc space narrowing is present resulting in a diffuse disc osteophyte complex without a significant posterior component. The left facet joint is mildly hypertrophied. Normal central canal and bilateral lateral recesses. Normal bilateral intervertebral neural foramina. L5-S1: Posterior decompressive defect noted. Chronic fatty atrophy of the paraspinal musculature as well as some minor scarring. Normal endplates. Disc desiccation is present. Normal disc height and morphology. Normal bilateral facet joints. Normal central canal and bilateral lateral recesses. Normal bilateral intervertebral neural foramina. Normal visualized sacral ala. Normal visualized paraspinous soft tissue structures. No demonstrated arachnoiditis. MRI/Spine Lumbar (Routine) IMPRESSION: 1. Multilevel degenerative changes, as described above. 2. Moderate degenerative disc disease at L4-L5. 3. Posterior decompressive defects at L4-L5 and L5-S1 4. No significant central canal stenosis or foraminal stenosis or nerve root compression. Electronically Signed: Олег Zepeda MD at 12:35 EST , Service support ,
== END ==
PROVIDERS: PCP Internal Medicine; Referring Provider Anesthesiology Pain Medicine; Visit Provider Anesthesiology Pain Medicine
DX: M54.9 Dorsalgia, unspecified (principal); M79.606 Pain in leg, unspecified
CPT/HCPCS: 72148

== ENCOUNTER → 2019-09-30 12:04 | Outpatient (CLI) | payer MEDICAID, SELFPAY ==
[2019-09-30 13:55] LABS: Amphetamine Urine VISTA NEGATIVE (<1000 ng/mL); Barbiturate Urine VISTA NEGATIVE (< 200 ng/mL); Benzodiazepine Urine VISTA NEGATIVE (< 200 ng/mL); Cocaine Urine VISTA NEGATIVE (< 300 ng/mL); Ecstacy Urine VISTA NEGATIVE (< 500 ng/mL); Methadone Urine VISTA NEGATIVE (< 300 ng/mL); PCP Urine VISTA NEGATIVE (< 25 ng/mL); THC Urine VISTA NEGATIVE (< 50 ng/mL); Vista UDS pH Range 5
== END ==
PROVIDERS: PCP Internal Medicine; Referring Provider Anesthesiology Pain Medicine; Visit Provider Anesthesiology Pain Medicine
DX: F11.20 Opioid dependence, uncomplicated (principal)
CPT/HCPCS: 80307

== ENCOUNTER 2019-10-26 16:08 | Emergency (ER) | payer MEDICAID, SELFPAY ==
[2019-10-26 16:09] VITALS: BP 146/82; PULSE 79; PULSE 84; RESP 17; RESP 18; TEMP 36.3; O2SAT 94; O2SAT 95; BMI 44.2
--- NOTE | 2019-10-26 16:41 | ED.VIS.GEN ---
History of Present Illness Chief Complaint: Headache Informant: Patient Onset: Weeks - 1 week Context: Gradual Onset Timing: Waxes and wanes Current Severity: Moderate Maximum Severity: Moderate Narrative: Patient presents with right-sided migraine has been ongoing for the past 1 week. She states typically she improves with Maxalt but it is not been effective for this headache. She does report nausea with an episode of vomiting yesterday. She denies recent head injury. She denies URI symptoms. - Past Medical History (1) Hypothyroid Status: Chronic Comment: tsh elevated, ordered thyroid studies (2) Anxiety and depression Status: Chronic (3) Bilateral pulmonary embolism Status: Chronic Comment: The patient has completed 6 months of Eliquis therapy. Recent d-dimer level was low. She is currently a candidate for discontinuation of Eliquis. If she does develop recurrent venous thrombosis, would recommend lifelong anticoagulation at that time. (4) Hypertension Status: Chronic (5) Migraines Status: Chronic Past Medical History - Allergies and Home Meds Allergies/Adverse Reactions: Allergies cephalexin monohydrate [From Keflex] Allergy (Verified 10/26/19 16:08) Hives IV FORM ONLY PER PATIENT IS ABLE TO TAKE PO KEFLEX influenza virus vaccine, specific [influenza virus vacc,specific] Allergy (Verified 10/26/19 16:08) Hives levofloxacin [From Levaquin] Allergy (Verified 10/26/19 16:08) HIVES - JUST IV FORM caffeine Adverse Reaction (Verified 10/26/19 16:08) Shortness of breath tetanus toxoid, adsorbed Adverse Reaction (Verified 10/26/19 16:08) FEVER,NAUSEA,DIARRHEA,REDNESS AT INJECTION SITE Primary Care Physician: Nury Toscano MD [Primary Care Provider] - Prior records reviewed: Yes Surgical History: - - Tonsillectomy, Bilateral breast reduction, BL carpal tunnel surgery, L4-L5 back surgery (no hardware). Smoking Status: Never smoker - Family History Maternal Family History: Family History (Last Reviewed 07/04/17 @ 08:54 by Beckie Solo) Mother Arthritis Father CAD (coronary artery disease) Kidney disease Heart disease Brother Diabetes Heart disease Renal failure Family History: Reports: - Paternal Family History: Family History (Last Reviewed 07/04/17 @ 08:54 by Beckie Solo) Mother Arthritis Father CAD (coronary artery disease) Kidney disease Heart disease Brother Diabetes Heart disease Renal failure Family History: Reports: Heart Disease, Hypertension, Renal Disease, - Sibling Family History: Family History (Last Reviewed 07/04/17 @ 08:54 by Beckie Solo) Mother Arthritis Father CAD (coronary artery disease) Kidney disease Heart disease Brother Diabetes Heart disease Renal failure Family History: Reports: Diabetes, Heart Disease, Renal Disease, - Review of Systems General: Denies: Chills, Fever Eyes: Reports: - - Positive photophobia. Denies: Visual changes - bilaterally ENT: Denies: Bilateral ear pain, Rhinorrhea, Sore throat Cardiovascular: Denies: Chest pain Respiratory: Denies: Dyspnea, Cough Gastrointestinal: Reports: Nausea, Vomiting. Denies: Abdominal pain, Diarrhea Musculoskeletal: Denies: Swelling, Extremity Pain Neurological: Reports: Headache. Denies: Weakness, Parasthesia Hematologic: Denies: Easy bruising, Easy bleeding Allergy: Denies: Uticaria Physical Exam Vital Signs/Narrative: Vital Signs Temp Pulse Resp BP Pulse Ox 10/26/19 16:09 97.4 F L 79 18 146/82 H 95 Inital Vital Signs reviewed: Yes General: Well nourished, Well developed Head: Normocephalic Eyes: Perrl, EOMI ENT: Moist mucous membranes Neck: Supple Cardiovascular: Regular rate, Regular rhythm Respiratory: No distress, CTA bilaterally Abdomen: Soft, Nontender, Nondistended Back: Nontender Extremities: Nontender Skin: Normal color, No rash Neurological: Alert, Oriented x3, Normal Strength, Normal Sensation Psychological: Normal affect Diagnostic/Tx/Re-eval - Medical Decision Making Patient was treated with Toradol, Reglan, Benadryl, and IV fluids. On repeat evaluation she is improved. She will be discharged with return instructions. ED Disposition - Plan for ED Patient: Disposition: Home or Assisted Living Diagnosis: Migraine Instructions: ED, Migraine (Classical) Referrals: Nury Toscano MD [Primary Care Provider] - As Needed
[2019-10-26] MEDS: 0.9% Normal Saline 1,000 ML 999 ML IV (16:50)
[2019-10-26] MEDS: Metoclopramide 10 MG/2 ML Vial IV (16:51)
[2019-10-26] MEDS: Ketorolac 30 MG/ML Syringe IV (16:52)
[2019-10-26] MEDS: DiphenhydrAMINE 50 MG/ML Syringe 25 MG IV (16:54)
[2019-10-26 18:37] VITALS: BP 141/95; PULSE 67; RESP 18; O2SAT 99
== END 2019-10-26 18:39 | disposition home or self-care (01) ==
PROVIDERS: Emergency Provider Emergency Medicine; PCP Internal Medicine
DX: G43.909 Migraine, unspecified, not intractable, without status migrainosus (principal); E03.9 Hypothyroidism, unspecified; F32.9 Major depressive disorder, single episode, unspecified
CPT/HCPCS: 96361; 96374; 96375; 99283; J7030; A4216

== ENCOUNTER → 2021-01-10 17:04 | Outpatient (CLI) | payer MEDICAID, SELFPAY ==
[2021-01-14 12:48] LABS: HPV APTIMA, High Risk Negative (Negative)
== END ==
PROVIDERS: PCP Internal Medicine; Referring Provider Obstetrics & Gynecology; Visit Provider Obstetrics & Gynecology
DX: Z12.4 Encounter for screening for malignant neoplasm of cervix (principal)
CPT/HCPCS: 87624; 88175; G0145

== ENCOUNTER → 2021-02-16 07:17 | Outpatient (CLI) | payer MEDICAID, SELFPAY ==
[2021-02-16 07:49] LABS: Glucose 97 mg/dL (74-106)
[2021-02-16 08:59] LABS: Hemoglobin A1c 5.4 % (3.8-5.6)
== END ==
PROVIDERS: PCP Internal Medicine; Referring Provider Obstetrics & Gynecology; Visit Provider Obstetrics & Gynecology
DX: Z13.1 Encounter for screening for diabetes mellitus (principal)
CPT/HCPCS: 36415; 82947; 83036

== ENCOUNTER → 2022-05-14 | Outpatient (CLI) | payer MEDICAID, SELFPAY ==
--- NOTE | 2022-05-14 12:01 | BI_ITS ---
MAMMOGRAPHY - BILATERAL SCREENING REASON FOR EXAM: Female, 52 years old. Routine annual screening examination. PERTINENT HISTORY: Non-contributory. History of prior bilateral breast reduction surgery. TECHNIQUE: Digital bilateral breast sheila (3D mammographic acquisition) in the CC and MLO projections. 2-D mediolateral oblique (MLO) and craniocaudad (CC) views of both breasts were obtained. CAD: Full Field Digital Mammography with Computer Added Detection was performed. COMPARISON: Comparison is made with prior outside examination dated 08/18/2020. FINDINGS: Breast Composition: The breasts are almost entirely fatty. There are no dominant masses or suspicious calcifications. Stable small benign-appearing bilateral axillary lymph nodes. No other significant abnormalities are identified. There has been no significant change since the prior study. BI/SCRN MAMM (CAD)W/SHEILA BILAT IMPRESSION: Stable bilateral screening mammogram. Yearly follow-up mammogram recommended. (A) ASSESSMENT CATEGORY: BIRADS Category 2: Benign. A letter regarding these results will be sent to the patient by the facility within 30 days. Approximately 10% of breast cancers are not detected by mammography. A normal mammogram should not delay biopsy of a clinically suspicious abnormality. [id number] Electronically Signed: Morgan Johnson MD at 13:11 EST ,
== END | disposition home or self-care (01) ==
LOC: OPBI 11:59
PROVIDERS: PCP Internal Medicine; Referring Provider Obstetrics & Gynecology; Visit Provider Obstetrics & Gynecology
DX: Z12.31 Encounter for screening mammogram for malignant neoplasm of breast (principal)
CPT/HCPCS: 77063; 77067

== ENCOUNTER 2022-08-27 08:09 | Day surgery (SDC) | payer MEDICAID, SELFPAY ==
[2022-08-27] VITALS (7 sets, daily range): BP systolic 88–111; BP diastolic 55–72; PULSE 86–97; RESP 16; TEMP 36.1–36.6; O2SAT 93–97; BMI 46.7
--- NOTE | 2022-08-27 | TOBX_PTH ---
PATIENT: JENNY ROWLAND LOC: [facility] [place] U#:[id number] AGE/SX: 52/F ROOM: RE08/27/[address]: Dr. Tyrone Maciel MD : 1970 BED: DIS: 08/27/2022 SPEC #: [id number] RECD: 08/27/22 11:10 STATUS: KETURAH REQ #: [id number] NESS: 08/27/22 00:[address]: Tyrone Maciel DEPT: SURGICAL PATHOLOGY RECD BY: Loco Monsalve ENTERED: 08/27/22 11:11 SP TYPE: TONGUE BX OTHR DR: Dr. Belkis Melgar MD Tissues: A - Tongue, NOS B - Tongue, NOS Procedures: Surgery Specimen Level IV HEADER OPERATION: Excision tongue lesion PRE-OP DIAGNOSIS: Benign neoplasm of tongue TISSUE SUBMITTED: A ? Right tongue lesion #1, B - Right tongue lesion #2 MICROSCOPIC DIAGNOSIS A. Right tongue lesion #1, biopsy: Squamous mucosa with mild acanthosis and minimal parakeratosis. B. Right tongue lesion #2, biopsy: Consistent with squamous papilloma. AM:juan 08/28/2022 MICROSCOPIC DESCRIPTION Slides are reviewed. GROSS DESCRIPTION A - Received in fixative is one container labeled with the patient's name and designated right tongue lesion #1. The specimen consists of a piece of mcqueen-white nodule measuring 0.2 x 0.2 x 0.1 cm. The specimen is totally submitted in one cassette. B - Received in fixative is one container labeled with the patient's name and designated right tongue lesion #2. The specimen consists of a piece of mcqueen mucosal tissue measuring 0.3 x 0.3 x 0.2 cm. The specimen is totally submitted in one cassette. / SJ:juan 08/27/2022 TC:5 CPT: 01257 x2
[2022-08-27] MEDS: Lactated Ringers 1,000 ML 15 ML IV (08:48)
--- NOTE | 2022-08-27 08:54 | PCM.DC.SUM ---
Providers Primary Care Physician: Dr. Belkis Melgar MD Reason For Visit: EXCISION TONGUE LESION Medications at Discharge Home Medications hydrochlorothiazide 25 mg tablet 12.5 mg PO DAILY diuretic/water pill 01/03/17 gabapentin 600 mg tablet 600 mg PO TID nerve pain 06/04/17 levothyroxine 25 mcg tablet 25 mcg PO DAILY 30 days ##30 06/04/17 methocarbamol 750 mg tablet 750 mg PO PRN PRN Pain 06/06/17 venlafaxine 225 mg tablet,extended release 24 hr 225 mg PO DAILY ANXIETY 06/06/17 ibuprofen 600 mg tablet 600 mg PO Q6H PRN PRN Pain #30 tabs 06/10/17 clonazepam 1 mg tablet 1 mg PO BID anxiety 07/04/17 quetiapine 100 mg tablet 100 mg PO BID 10/08/18 tramadol 50 mg tablet 50 mg PO QHS 10/26/19 albuterol sulfate 90 mcg/actuation aerosol inhaler (ProAir HFA) 2 puff inhalation Q6H PRN Sob &/Or Wheezing #6.7 grams 05/06/21 acetaminophen 500 mg tablet 1,000 mg PO QHS 08/21/22 meloxicam 7.5 mg tablet 7.5 mg PO DAILY 08/21/22 rizatriptan 10 mg tablet (Maxalt) 10 mg PO Q2H PRN Migraine Headache 08/21/22 trazodone 50 mg tablet 50 mg PO QHS 08/21/22 Weight / BMI Weight Weight: 123.5 kg Body Mass Index (BMI) 46.7 D/C Instructions Discharge Diet: Soft diet Discharge Activity: Return to Normal Activity Please Follow Up With: Tyrone Maciel MD When: 10 days Meaningful Use Info Meaningful Use Diagnoses (Choose all that apply): None applicable Discharge Plan Admission Attending Provider: Tyrone Maciel Primary Care Provider: Belkis Melgar Discharge Orders/Prescriptions Prescriptions: No Action levothyroxine 25 mcg tablet 25 mcg PO DAILY 30 Days Qty: 30 Label Comments: albuterol sulfate [ProAir HFA] 90 mcg/actuation HFA aerosol inhaler 2 puff INHALATION Q6H PRN (Reason: Sob &/Or Wheezing) Qty: 6.7 0RF gabapentin 600 MG tablet 600 mg PO TID clonazepam 1 mg tablet 1 mg PO BID hydrochlorothiazide 25 MG tablet 12.5 mg PO DAILY methocarbamol 750 MG tablet 750 mg PO PRN PRN (Reason: Pain) venlafaxine 225 MG tablet extended release 24 hr 225 mg PO DAILY ibuprofen 600 MG tablet 600 mg PO Q6H PRN PRN (Reason: Pain) Qty: 30 0RF quetiapine 100 MG tablet 100 mg PO BID tramadol 50 MG tablet 50 mg PO QHS acetaminophen [Tylenol Ex Str Rapid Release] 500 mg Tablet 1,000 mg PO QHS trazodone 50 mg tablet 50 mg PO QHS Rx Instructions: take one to two tablets at night 1 hour prior to bedtime. rizatriptan [Maxalt] 10 mg Tablet 10 mg PO Q2H PRN (Reason: Migraine Headache) Rx Instructions: do not exceed 3 doses per 24 hrs meloxicam [Mobic] 7.5 mg Tablet 7.5 mg PO DAILY Referrals / Follow Up: Belkis Melgar MD [Primary Care Provider] - Disposition Disposition (needs filled in before D/C Order can be placed): Home, Self Care
[2022-08-27] MEDS: Lidocaine 1% /Epi 1:100 (20ml) 20 ML Vial (09:35)
--- NOTE | 2022-08-27 09:38 | PCM.OPRPT ---
Report of Operation Date of Procedure: 08/27/22 Pre-Operative Diagnosis: tongue lesion Post-Operative Diagnosis: same Surgery/Procedure Performed:: excision tongue lesions Surgeon: Tyrone Maciel Type of Anesthesia: Local MAC Anesthesiologist: Jayant Brown Specimen's removed: tongue lesion 1 (smaller superior) tongue lesion 2 (larger) Estimated Blood Loss (mL): minimal Description of Procedure: Patient was taken to the operating room on 08/27/2022. She was placed in the supine position on the operating room cart. She was given local MAC anesthesia. 1% lidocaine with epinephrine injected into the right lateral tongue surrounding the benign lesions. After sufficient vasoconstriction and anesthesia of the superior smaller lesion was excised with a 15 blade. This was sent for permanent section. A single stitch was used to close the incision. Next the larger more inferior lesion was then excised with a 15 blade in an ellipse. This was sent for permanent section. I closed this with 2 interrupted 4-0 chromic. All blood was suctioned from the oral cavity. The patient was then brought to the recovery room in stable condition blood loss minimal replacement none sponge, needle, and instrument count correct at the end the procedure.
== END 2022-08-27 10:28 | disposition home or self-care (01) ==
LOC: SDC 08:10 → AC 08:12
PROVIDERS: PCP Internal Medicine; Visit Provider Otolaryngology
PROC: (CPT 41112; principal; 2022-08-27 09:35)
DX: D10.1 Benign neoplasm of tongue (principal); R23.4 Changes in skin texture; K14.3 Hypertrophy of tongue papillae; Z79.899 Other long term (current) drug therapy; E03.9 Hypothyroidism, unspecified; F41.9 Anxiety disorder, unspecified; F32.A Depression, unspecified; I10 Essential (primary) hypertension; Z86.16 Personal history of COVID-19; Z86.711 Personal history of pulmonary embolism; Z86.718 Personal history of other venous thrombosis and embolism
CPT/HCPCS: 41112; 00170; 88305; J7120; J2405

== ENCOUNTER → 2022-09-12 | Outpatient (CLI) | payer MEDICAID, SELFPAY ==
[2022-09-12 13:17] LABS: Amphetamine Urine VISTA NEGATIVE (<1000 ng/mL); Barbiturate Urine VISTA NEGATIVE (< 200 ng/mL); Benzodiazepine Urine VISTA NEGATIVE (< 200 ng/mL); Cocaine Urine VISTA NEGATIVE (< 300 ng/mL); Ecstacy Urine VISTA NEGATIVE (< 500 ng/mL); Methadone Urine VISTA NEGATIVE (< 300 ng/mL); PCP Urine VISTA NEGATIVE (< 25 ng/mL); THC Urine VISTA NEGATIVE (< 50 ng/mL); Vista UDS pH Range 5
== END | disposition home or self-care (01) ==
PROVIDERS: PCP Internal Medicine; Referring Provider Anesthesiology Pain Medicine; Visit Provider Anesthesiology Pain Medicine
DX: F11.20 Opioid dependence, uncomplicated (principal)
CPT/HCPCS: 80307